=== PATIENT | male | born 1990 | race Caucasian/White ===

== ENCOUNTER → 2017-09-21 14:50 | Outpatient (CLI) | payer OTHER, SELFPAY ==
--- NOTE | 2017-09-21 14:53 | DI.RAD.S_ITS ---
PROCEDURE: XR CHEST 2V INDICATIONS: COUGH TECHNIQUE: 2 views of the chest were acquired. COMPARISON: [facility], , CHEST 2 VIEW, 10/24/2015, 10:37. FINDINGS: Surgical changes and devices: None. Lungs and pleura: No pleural effusions or pneumothorax. There is slight blunting of the right posterior costophrenic angle, unchanged and compatible with scarring. Lungs are clear. Mediastinum: Mediastinal contours are normal. Heart size is normal. Bones and chest wall: No suspicious bony abnormalities. Soft tissues appear unremarkable. IMPRESSION: No acute cardiopulmonary abnormality. Source of cough is not seen. Dictated by: Montrell Byrne M.D. on 09/21/2017 at 15:13 Approved by: Montrell Byrne M.D. on 09/21/2017 at 15:15
== END ==
PROVIDERS: PCP Physician Assistant; Visit Provider Internal Medicine
DX: R05 Cough (principal)
CPT/HCPCS: 71046